=== PATIENT | male | born 1960 | race Caucasian/White ===

== ENCOUNTER 2016-11-22 22:33 | Emergency (ER) | payer SELFPAY ==
[~2016-11-22] VITALS: Ht 167.6 cm; Wt 74.0 kg
[~2016-11-22 22:33] MED LIST: DRV100 PO
[2016-11-22] MEDS ORDERED: SODIUM CHLORIDE 0.9% 1000ML 1,000 ML IV STA ×2 (22:38)
[2016-11-22 22:39] VITALS: TEMP 36.6; O2SAT 94; Ht 167.6 cm; Wt 74.0 kg
[2016-11-22] MEDS ORDERED: MULTI-VITAMIN INFUSION INJ 10 ML, THIAMINE HCL INJ 100 MG, FoLIC ACID INJ 1 MG in SODIU... IV ONE (22:45)
[2016-11-22 23:06] LABS: BASO % 0.8 %; BASO ABS # 0.08 K/uL (0-0.2); COMPLETE YES; EOS % 1.1 %; HEMATOCRIT 39.6 % (42-52); IG% 0.1 %; LYMPH % 30.9 %; LYMPH ABS # 2.92 K/uL (1.2-3.4); MEAN CELL VOLUME 91.9 fL (80-100); MEAN CORPUSCULAR HEMOGLOBIN 32.3 pg (25-34); MEAN CORPUSCULAR HGB CONC 35.1 g/dl (32-36); MEAN PLATELET VOLUME 9.6 fL (7.4-10.4); MONO % 8.8 %; NEUT % 58.3 %; PLATELET COUNT 264 K/uL (130-400); RED BLOOD COUNT 4.31 M/uL (4.7-6.1); WHITE BLOOD COUNT 9.45 K/uL (4.8-10.8)
[2016-11-22 23:12] LABS: ISTAT CREATININE 1.4 mg/dl (0.6-1.3); ISTAT HEMOGLOBIN 13.9 g/dl (14.0-18.0); ISTAT IONIZED CALCIUM 1.08 mmol/l (1.12-1.32)
[2016-11-22 23:21] LABS: INR 0.9 (0.9-1.1); PARTIAL THROMBOPLASTIN RATIO 1.2; PROTHROMBIN TIME (PATIENT) 9.9 SECONDS (9.0-12.0)
--- NOTE | 2016-11-22 23:54 | DIAGNOSTIC IMAGING REPORT ---
TWO VIEW CHEST CLINICAL HISTORY: Cough. FINDINGS: PA and lateral chest radiographs are compared to study dated 03/22/2010. The PA view is degraded by patient rotation and apical lordotic positioning. The cardiomediastinal silhouette is unremarkable. Enlargement of the central pulmonary arteries suggests pulmonary artery hypertension. There is emphysema and chronic interstitial thickening. No airspace consolidation or pleural effusion is identified. There is no pneumothorax. The skeletal structures are osteopenic. The bony thorax appears intact. IMPRESSION: Emphysema with no acute cardiopulmonary abnormality. Electronically signed by: Paco Crouch M.D. 11/22/2016 11:53 PM Dictated Date/Time: 11/22/2016 11:51 PM
[2016-11-23 00:11] LABS: ALKALINE PHOSPHATASE 61 U/L (45-117); ALT/SGPT 25 U/L (12-78); AST/SGOT 26 U/L (15-37); BLOOD UREA NITROGEN 14 mg/dl (7-18); BUN/CREATININE RATIO 12.9 (10-20); CALCIUM 8.7 mg/dl (8.5-10.1); CARBON DIOXIDE 21 mmol/L (21-32); CHLORIDE 102 mmol/L (98-107); GLUCOSE 92 mg/dl (70-99); MAGNESIUM 2.2 mg/dl (1.8-2.4); POTASSIUM 3.9 mmol/L (3.5-5.1); SODIUM 139 mmol/L (136-145)
[2016-11-23] MEDS ORDERED: OPTIRAY 320 IV PRN (00:15)
--- NOTE | 2016-11-23 01:01 | DIAGNOSTIC IMAGING REPORT ---
CT ANGIOGRAM OF THE CHEST CLINICAL HISTORY: Cough and dyspnea. COMPARISON STUDY: Chest x-ray dated 11/22/2016. TECHNIQUE: Following the IV administration of 116 cc of Optiray 320, CT angiogram of the chest was performed from the upper abdomen to the thoracic inlet utilizing the pulmonary embolus protocol. Images are reviewed in the axial, sagittal, and coronal planes. 3-D MIPS images are created and assessed. IV contrast was administered without complication. CT DOSE: 298.71 mGy.cm FINDINGS: Thyroid: Imaged portions of the thyroid gland are normal in size and attenuation. Thoracic aorta: The thoracic aorta is normal in caliber and demonstrates standard 3-vessel arch anatomy. No dissection is seen. Pulmonary vasculature: The pulmonary trunk is normal in caliber. There are no filling defects identified in main, lobar, or segmental pulmonary branches to suggest pulmonary embolus. Heart: The heart is normal in size and configuration, and without pericardial effusion. Lungs and pleural spaces: Emphysematous change is noted. There is no airspace consolidation or pleural effusion. Dependent atelectasis is observed. Mild diffuse peribronchial thickening is noted. The trachea and central airways are clear. There is a 1.2 cm focus of nodular pleural thickening in the right middle lobe lung minor fissure seen on image #167. There is an 8 mm right lower lobe nodular density seen on image #136. A 3 mm right lower lobe nodule is seen on image #119, and a 2 mm right middle lobe nodule seen image #109. A 3 mm right apical nodule is seen on image #250. Mediastinum: There is no mediastinal lymphadenopathy. Ginger: Clear. Axillae: There is no axillary lymphadenopathy. Upper abdomen: Partially visualized upper abdominal viscera is within normal limits. Small calcified splenic granulomas are incidentally noted. Skeletal structures: The skeletal structures appear osteopenic. Mild degenerative change is seen throughout the thoracic spine. No lytic or blastic bony lesions are seen. IMPRESSION: 1. There is no evidence of pulmonary embolus in the main, lobar, or segmental pulmonary arteries. 2. Emphysema. 3. There is no airspace consolidation or pleural effusion. Mild diffuse pericardial thickening suggests reactive airway disease. Clinical correlation will be required. 4. There are indeterminant pleural-based and pulmonary nodular densities measuring up to 12 mm. These can be followed as per the Fleischner criteria. See below. Please refer to below summary of Fleischner criteria recommendations for follow-up of incidental CT nodules (Ganesh Diaz, Guidelines for management of small pulmonary nodules detected on CT scans: A statement from the Fleischner Society, Radiology 237: [phone].) Low Risk Patient: Minimal or no smoking or other known risk factors for malignancy <=4 mm: No follow-up needed. >4-6 mm: Initial follow-up CT at 12 months; if unchanged, no further follow-up. >6-8 mm: Initial follow-up CT at 6-12 months then at 18-24 months if no change. >8 mm: Follow-up CT at \R\3, 9, 24 months, or PET and/or biopsy. High Risk Patient: History of smoking or other known risk factors <=4 mm: Follow-up at 12 months; if unchanged, no further follow-up. >4-6 mm: Initial follow-up CT at 6-12 months then at 18-24 months if no change. >6-8 mm: Initial follow-up CT at 3-6 months then at 9-12 and 24 months if no change. >8 mm: Same as low risk patient. Note: Nodule size measured as average of length and width. Ground glass or partly solid nodules may require longer follow-up to exclude indolent adenocarcinoma. Electronically signed by: Paco Crouch M.D. 11/23/2016 12:59 AM Dictated Date/Time: 11/23/2016 12:53 AM
[2016-11-23] MEDS ORDERED: PRED50TA PO (03:08)
[2016-11-23] MEDS ORDERED: AZIT250T PO (03:08)
[2016-11-23] MEDS ORDERED: AZITHROMYCIN 250 MG TAB PO STA (03:08)
[2016-11-23] MEDS ORDERED: ALBUTEROL HFA 8 GM INHALER INH STA (03:08)
[2016-11-23 03:35] VITALS: BP 122/58; PULSE 78; O2SAT 93
--- NOTE | 2016-11-23 06:02 | EMERGENCY ROOM VISIT NOTE ---
History First contact with patient: 22:37 Chief Complaint: SHORTNESS OF BREATH Stated Complaint: SOB, COUGH, CHEST DISCOMFORT Nursing Triage Summary: Pt reports having cough for 2 weeks. Today he drank 2 25oz natural ice and went home. He began coughing and SOB. He does report chest discomfort 01/10. EMS gave 1 nitro and pain went to /. Pt reports productive cough with yellow sputum. states, "I feel like I cant get enough breath in my lungs." History of Present Illness The patient is a 56 year old male who presents to the Emergency Room with complaints of cough, congestion, short of breath and chest pain for the past week. Patient does drink alcohol daily. No history of DTs or seizures from withdrawal from alcohol. Patient denies abdominal pain, vomiting, diarrhea, headache, neck stiffness. He does smoke. No drugs. Review of Systems See HPI for pertinent positives & negatives. A total of 10 systems reviewed and were otherwise negative. Past Medical/Surgical History Coronary artery disease, back pain Social History Smoking Status: Current Every Day Smoker Smokeless Tobacco Use: No Alcohol Use: heavy Drug Use: none Current/Historical Medications Scheduled Azithromycin (Zithromax), 250 MG PO DAILY Prednisone (Prednisone), 50 MG PO DAILY Allergies Coded Allergies: No Known Allergies (Verified , 06/28/10) Physical Exam Vital Signs Date Time Temp Pulse Resp B/P Pulse Ox O2 Delivery O2 Flow Rate FiO2 11/23/16 03:35 78 18 122/58 93 11/23/16 02:27 79 18 120/59 93 Room Air 11/23/16 01:06 73 18 105/50 92 Room Air 11/22/16 23:46 79 18 116/57 94 Room Air 11/22/16 22:42 91 11/22/16 22:39 36.6 96 20 95/67 94 Room Air 11/22/16 22:39 94 Room Air 11/22/16 22:39 Room Air 94 Pain Rating (0-10): 2.0 Physical Exam VITALS: Vitals are noted on the nurse's note and reviewed by myself. Vital signs stable. GENERAL: White male with EtOH odor, in no acute distress, nondiaphoretic, well- developed well-nourished. SKIN: The skin was without rashes, erythema, edema, or bruising. There is no tenting of the skin. Capillary reflex less than 2 seconds. HEAD: Normocephalic atraumatic. EARS: External auditory canals clear, tympanic membranes pearly castillo without erythema or effusion bilaterally. EYES: Pupils equal round and reactive to light and accommodation. Conjunctivae with injection, sclerae without icterus. Extraocular movements intact. NOSE: Patent, turbinates without inflammation or discharge. No sinus tenderness. MOUTH: Mucous membranes moist. Pharynx without erythema or exudate. Uvula midline. Airway patent. Tongue does not deviate. NECK: Supple without nuchal rigidity. No lymphadenopathy. No thyromegaly. Cervical spine is nontender. No JVD. No meningeal signs HEART: Regular rate and rhythm without murmurs gallops or rubs. LUNGS: Clear to auscultation bilaterally without wheezes, rales or rhonchi. No dullness to percussion. No retractions or accessory muscle use. ABDOMEN: Positive bowel sounds x 4. Normal tympanic percussion. Soft, nontender, without masses or organomegaly. Quezada sign negative. No guarding or rebound tenderness. MUSCULOSKELETAL: No muscle atrophy, erythema, or edema noted. NEURO: Patient was alert and oriented to person place and time. Normal sensation to light and sharp touch. No focal neurological deficits. Medical Decision & Procedures Laboratory Results 11/22/16 22:50 Red Blood Count 4.31, Mean Corpuscular Volume 91.9, Mean Corpuscular Hemoglobin 32.3, Mean Corpuscular Hemoglobin Concent 35.1, Mean Platelet Volume 9.6, Neutrophils (%) (Auto) 58.3, Lymphocytes (%) (Auto) 30.9, Monocytes (%) (Auto) 8.8, Eosinophils (%) (Auto) 1.1, Basophils (%) (Auto) 0.8, Neutrophils # (Auto) 5.51, Lymphocytes # (Auto) 2.92, Monocytes # (Auto) 0.83, Eosinophils # (Auto) 0.10, Basophils # (Auto) 0.08 11/22/16 22:50 Test 11/22/16 22:50 11/22/16 22:54 11/22/16 22:55 11/22/16 23:16 White Blood Count 9.45 K/uL (4.8-10.8) Red Blood Count 4.31 M/uL (4.7-6.1) Hemoglobin 13.9 g/dL (14.0-18.0) Hematocrit 39.6 % (42-52) Mean Corpuscular Volume 91.9 fL (80-100) Mean Corpuscular Hemoglobin 32.3 pg (25-34) Mean Corpuscular Hemoglobin Concent 35.1 g/dl (32-36) Platelet Count 264 K/uL (130-400) Mean Platelet Volume 9.6 fL (7.4-10.4) Neutrophils (%) (Auto) 58.3 % Lymphocytes (%) (Auto) 30.9 % Monocytes (%) (Auto) 8.8 % Eosinophils (%) (Auto) 1.1 % Basophils (%) (Auto) 0.8 % Neutrophils # (Auto) 5.51 K/uL (1.4-6.5) Lymphocytes # (Auto) 2.92 K/uL (1.2-3.4) Monocytes # (Auto) 0.83 K/uL (0.11-0.59) Eosinophils # (Auto) 0.10 K/uL (0-0.5) Basophils # (Auto) 0.08 K/uL (0-0.2) RDW Standard Deviation 50.0 fL (36.4-46.3) RDW Coefficient of Variation 14.7 % (11.5-14.5) Immature Granulocyte % (Auto) 0.1 % Immature Granulocyte # (Auto) 0.01 K/uL (0.00-0.02) Prothrombin Time 9.9 SECONDS (9.0-12.0) Prothromb Time International Ratio 0.9 (0.9-1.1) Activated Partial Thromboplast Time 30.0 SECONDS (21.0-31.0) Partial Thromboplastin Ratio 1.2 Est Creatinine Clear Calc Drug Dose 69.2 ml/min Estimated GFR () 87.7 Estimated GFR (Non- 75.7 BUN/Creatinine Ratio 12.9 (10-20) Calcium Level 8.7 mg/dl (8.5-10.1) Magnesium Level 2.2 mg/dl (1.8-2.4) Total Bilirubin 0.2 mg/dl (0.2-1) Direct Bilirubin mg/dl (0-0.2) Aspartate Amino Transf (AST/SGOT) 26 U/L (15-37) Alanine Aminotransferase (ALT/SGPT) 25 U/L (12-78) Alkaline Phosphatase 61 U/L (45-117) Total Creatine Kinase 413 U/L (39-308) Creatine Kinase MB 4.0 ng/ml (0.5-3.6) Creatine Kinase MB Ratio 1.0 (0-3.0) Total Protein 6.7 gm/dl (6.4-8.2) Albumin 3.7 gm/dl (3.4-5.0) Lipase 223 U/L (73-393) Procalcitonin 0.05 ng/mL (0-0.5) Chemistry Specimen Hemolysis Ethyl Alcohol mg/dL 215.0 mg/dl (0-3) Bedside Hemoglobin 13.9 g/dl (14.0-18.0) Bedside Hematocrit 41 % (42-52) Bedside Sodium 138 mEq/L (135-144) Bedside Potassium 3.8 mEq/L (3.3-5.0) Bedside Chloride 101 mEq/L (101-112) Bedside Total CO2 22 mEq/l (24-31) Anion Gap 20.0 mmol/L (16-25) Bedside Blood Urea Nitrogen 14 mg/dl (7-18) Bedside Creatinine 1.4 mg/dl (0.6-1.3) Bedside Glucose (other) 93 mg/dl (70-99) Bedside Ionized Calcium (Stephanie) 1.08 mmol/l (1.12-1.32) Bedside Troponin I 0.020 ng/ml (0-0.045) Bedside Lactic Acid Venous 3.58 mmol/L (0.90-1.70) Test 11/23/16 02:00 Troponin I < 0.015 ng/ml (0-0.045) Medications Administered Medications (Trade) Dose Ordered Sig/Estrada Route Start Time Stop Time Status Last Admin Dose Admin Multivitamins 10 ml/Thiamine HCl 100 mg/Folic Acid 1 mg/Sodium Chloride 1,011.2 ml @ 150 mls/ hr Q6H45M ONCE IV 11/22/16 22:45 11/23/16 04:18 DC 11/22/16 23:45 150 MLS/HR Sodium Chloride 1,000 ml @ 999 mls/hr Q1H1M STAT IV 11/22/16 22:38 11/22/16 23:38 DC 11/22/16 23:45 999 MLS/HR Sodium Chloride (Nss 1000ml) 1,000 ml @ 200 mls/hr Q5H STAT IV 11/22/16 22:38 11/23/16 03:37 DC 11/22/16 23:45 200 MLS/HR Azithromycin (Zithromax Tab) 500 mg NOW STAT PO 11/23/16 03:08 11/23/16 03:10 DC 11/23/16 03:28 500 MG Albuterol (Ventolin Hfa Inhaler) 2 puffs ONE STAT INH 11/23/16 03:08 11/23/16 03:10 DC 11/23/16 03:28 60 PUFFS Prednisone (PredniSONE TAB) 60 mg NOW STAT PO 11/23/16 03:08 11/23/16 03:10 DC 11/23/16 03:27 60 MG ED Course Prior records/ancillary studies reviewed. Triage Nursing notes reviewed. The patient's history was concerning for chest pain. Differential diagnosis: Etiologies such as cardiac ischemia, aortic dissection, pulmonary embolism, pneumonia, pneumothorax, musculoskeletal, infections, pericarditis, myocarditis , esophageal rupture, gastrointestinal, as well as others were entertained. Physical examination: As above. ER treatment provided: Banana bag, fluids, Zithromax, prednisone On reassessment the patient felt better. Diagnostic interpretation by me: The electrocardiogram was negative for pathologic change. Normal sinus, normal intervals, no acute ST-T wave changes. Impression normal sinus rhythm interpreted by myself. Unchanged from prior. The labs revealed negative troponin 2. Elevated alcohol negative procalcitonin. I believe the lactic acid is elevated due to the alcohol dehydration Imaging studies: Chest x-ray as above CT ANGIOGRAM OF THE CHEST CLINICAL HISTORY: Cough and dyspnea. COMPARISON STUDY: Chest x-ray dated 11/22/2016. TECHNIQUE: Following the IV administration of 116 cc of Optiray 320, CT angiogram of the chest was performed from the upper abdomen to the thoracic inlet utilizing the pulmonary embolus protocol. Images are reviewed in the axial, sagittal, and coronal planes. 3-D MIPS images are created and assessed. IV contrast was administered without complication. CT DOSE: 298.71 mGy.cm FINDINGS: Thyroid: Imaged portions of the thyroid gland are normal in size and attenuation. Thoracic aorta: The thoracic aorta is normal in caliber and demonstrates standard 3-vessel arch anatomy. No dissection is seen. Pulmonary vasculature: The pulmonary trunk is normal in caliber. There are no filling defects identified in main, lobar, or segmental pulmonary branches to suggest pulmonary embolus. Heart: The heart is normal in size and configuration, and without pericardial effusion. Lungs and pleural spaces: Emphysematous change is noted. There is no airspace consolidation or pleural effusion. Dependent atelectasis is observed. Mild diffuse peribronchial thickening is noted. The trachea and central airways are clear. There is a 1.2 cm focus of nodular pleural thickening in the right middle lobe lung minor fissure seen on image #167. There is an 8 mm right lower lobe nodular density seen on image #136. A 3 mm right lower lobe nodule is seen on image #119, and a 2 mm right middle lobe nodule seen image #109. A 3 mm right apical nodule is seen on image #250. Mediastinum: There is no mediastinal lymphadenopathy. Ginger: Clear. Axillae: There is no axillary lymphadenopathy. Upper abdomen: Partially visualized upper abdominal viscera is within normal limits. Small calcified splenic granulomas are incidentally noted. Skeletal structures: The skeletal structures appear osteopenic. Mild degenerative change is seen throughout the thoracic spine. No lytic or blastic bony lesions are seen. IMPRESSION: 1. There is no evidence of pulmonary embolus in the main, lobar, or segmental pulmonary arteries. 2. Emphysema. 3. There is no airspace consolidation or pleural effusion. Mild diffuse pericardial thickening suggests reactive airway disease. Clinical correlation will be required. 4. There are indeterminant pleural-based and pulmonary nodular densities measuring up to 12 mm. These can be followed as per the Fleischner criteria. See below. Please refer to below summary of Fleischner criteria recommendations for follow-up of incidental CT nodules (Ganesh Diaz, Guidelines for management of small pulmonary nodules detected on CT scans: A statement from the Fleischner Society, Radiology 237: [phone].) Low Risk Patient: Minimal or no smoking or other known risk factors for malignancy <=4 mm: No follow-up needed. >4-6 mm: Initial follow-up CT at 12 months; if unchanged, no further follow-up. >6-8 mm: Initial follow-up CT at 6-12 months then at 18-24 months if no change. >8 mm: Follow-up CT at \\R\\3, 9, 24 months, or PET and/or biopsy. High Risk Patient: History of smoking or other known risk factors <=4 mm: Follow-up at 12 months; if unchanged, no further follow-up. >4-6 mm: Initial follow-up CT at 6-12 months then at 18-24 months if no change. >6-8 mm: Initial follow-up CT at 3-6 months then at 9-12 and 24 months if no change. >8 mm: Same as low risk patient. Note: Nodule size measured as average of length and width. Ground glass or partly solid nodules may require longer follow-up to exclude indolent adenocarcinoma. Electronically signed by: Paco Crouch M.D. 11/23/2016 12:59 AM Exam and history seem consistent with bronchitis. Patient was started on antibiotics as he is a smoker and alcoholic. He was advised to follow-up family medicine for further workup for his lung nodule seen on imaging and for his symptoms today. He had 2 negative troponins. Normal EKG. Patient was requesting to leave and I felt this is reasonable. By the evaluation outlined above emergent etiologies such as cardiac ischemia, aortic dissection, pulmonary embolism, pneumonia, pneumothorax, infections, pericarditis, myocarditis, gastrointestinal, as well as others were deemed relatively unlikely. The pt informed about the findings as listed above. All questions were answered and pleased with the treatment. Return instructions were outlined and the patient was discharged in stable condition. Outpatient prescription management: z-calvin Prednisone Referral: The patient was referred back to primary care physician for follow-up in 2 to 3 days for a recheck of the current condition. case reviewed with my Attending Medical Decision As above Impression Primary Impression: Acute bronchitis Additional Impressions: alcohol intoxication Lung nodule Departure Information Dispostion Home / Self-Care Condition GOOD Prescriptions Azithromycin (Zithromax) 250 Mg Tab 250 MG PO DAILY for 4 Days, #4 TAB Prov: Meredith Malik PA-C 11/23/16 Prednisone (Prednisone) 50 Mg Tab 50 MG PO DAILY for 4 Days, #4 TAB Prov: Meredith Malik PA-C 11/23/16 Forms HOME CARE DOCUMENTATION FORM, IMPORTANT VISIT INFORMATION Patient Instructions Bronchitis Acute, My [facility] Additional Instructions You need further workup for lung nodule seen on CT imaging. Highly recommend that you quit smoking. Albuterol Inhaler: Take 2 puffs four times daily for five days, then as needed. Prednisone 50mg: Once daily until the prescription is finished. It is best to take this earlier in the day as some patients note occasional difficulty falling asleep when taken in the late evening. Azithromycin(Zithromax) 250mg: Take one a day for 4 additional days. All antibiotics can cause diarrhea. If this occurs and you feel worse or it does not resolve in 1-2 days follow up with your doctor or return to the Emergency Department as this could be signs of serious underlying problems. Any medication can cause an allergic reaction, stop the pills immediately and return to the ER for rash, hives, breathing difficulties, or swelling. Acetaminophen(Tylenol) may be used for fever or pain. Use 1000mg every six hours as needed. Avoid using more than 3000mg in a 24 hour period. (AND/OR) Ibuprofen(Motrin, Advil) may be used for fever or pain. Use 600mg every six hours as needed. Take with food. Avoid using more than 2400mg in a 24 hour period. Do not use 2400mg per day for more than three consecutive days without physician direction. Prolonged inappropriate use can lead to stomach upset or ulcers. Rest and drink plenty of fluids. Avoid smoke/smoking, fumes, dust, or any triggers in the past that may have affected your breathing. Continue current medications. Return to the ER for chest pain, difficulty breathing, fevers, vomiting, worsening of your condition, or as needed. Follow up with your primary physician this week for a recheck of your current condition. Problem Qualifiers
== END 2016-11-23 03:30 | disposition home or self-care (01) ==
LOC: EDBD 22:33 → C.EDB 22:36
DX: J20.9 Acute bronchitis, unspecified (principal); F10.129 Alcohol abuse with intoxication, unspecified; R91.1 Solitary pulmonary nodule; F17.200 Nicotine dependence, unspecified, uncomplicated